=== PATIENT | male | born 1945 | race Hispanic/Latino ===

== ENCOUNTER 2017-08-07 12:48 | Outpatient (CLI) | payer MEDICARE ==
--- NOTE | 2017-08-07 14:56 | MRI ---
MRI LUMBAR SPINE WITHOUT CONTRAST: HISTORY: Low back pain radiating down the right hip/leg. Right lumbar radiculopathy, dorsalgia. FINDINGS: The vertebral heights and marrow signal are maintained. There is minimal anterolisthesis of L4 over L5. Conus medullaris ends at the L1 level. Chronically short pedicles are noted bilaterally. There are broad-based disk bulges of the lumbar spine. Bilateral facet hypertrophic changes and ligamentu m flavum hypertrophy changes are present most prominent at L2-3, L4-5, and L5-S1 levels. There is mo derate central canal stenosis at L2-3 level and severe central canal stenosis at L4-5 level. No sign ificant neural foraminal stenosis is seen. There is mild right-sided neural foraminal stenosis at L5 -S1 level. IMPRESSION: 1. Lumbar spondylosis with minimal grade I anterolisthesis of L4 over L5. 2. Severe central spinal stenosis at L4-5 level and moderate central canal stenosis at L2-L3 level. POS: JAMEEL
== END 2017-08-07 12:49 | disposition home or self-care (01) ==
LOC: SCSMRI 12:48
PROVIDERS: ATTEND Family Medicine
DX: M47.26 Other spondylosis with radiculopathy, lumbar region (principal); M48.061 Spinal stenosis, lumbar region without neurogenic claudication; Z98.890 Other specified postprocedural states
CPT/HCPCS: 72148

== ENCOUNTER 2019-04-22 09:07 | Emergency (ER) | payer MEDICARE ==
[2019-04-22] MEDS ORDERED: Fentanyl 100 MCG/2 ML VIAL ONE (09:41)
--- NOTE | 2019-04-22 09:48 | RAD ---
Radiograph right hip 2 views: HISTORY: 73-year-old male with traumatic right hip pain due to fall from height. FINDINGS: No fracture or dislocation. No high-grade DJD of right hip joint. IMPRESSION: Negative.
--- NOTE | 2019-04-22 09:48 | RAD ---
Exam: One view pelvis HISTORY: Fall. Pain. FINDINGS: Sacroiliac joints are patent and symmetric. Sacral alar preserved. Intact bony pelvis. Cont our of both femoral heads are maintained. Symmetric hip joint spaces. IMPRESSION: No posttraumatic change in the single AP pelvic radiograph.
[2019-04-22 09:52] LABS: #Eosinphils 0.5 thou/uL (0.0-0.7); #Lymphocytes 1.3 thou/uL (1.20-3.40); #Monocytes 0.4 thou/uL (0.11-0.59); #Neutrophils 4.2 thou/uL (1.40-6.50); %Basophils 0.2 % (0.0-1.0); %Eosinophils 7.6 % (0.0-10.0); %Lymphocytes 20.3 % (21.0-51.0); %Monocytes 5.9 % (0.0-10.0); Mean Corpuscular HGB CONC 33.9 g/dL (32.0-36.0); Mean Corpuscular Hemoglobin 30.6 pg (27.0-31.0); Mean Corpuscular Volume 90.5 fL (78.0-98.0); Mean Platelet Volume 7.6 fL (7.4-10.4); Platelet Count 122 thou/uL (130-400); Red Blood Cell (RBC) Count 4.57 mill/uL (4.70-6.10); White Blood Cell (WBC) Count 6.4 thou/uL (4.8-10.8)
[2019-04-22 10:12] LABS: ALT (SGPT) 21 U/L (8-55); AST (SGOT) 25 U/L (5-34); Albumin 4.5 g/dL (3.4-4.8); Alkaline Phosphatase 56 U/L (40-150); Anion Gap 15 mmol/L (10-20); BUN (Urea Nitrogen) 19 mg/dL (8.4-25.7); Bilirubin, Total 0.8 mg/dL (0.2-1.2); Calc. Creatinine Clearance 0 mL/min (70-130); Carbon Dioxide 24 mmol/L (23-31); Chloride 101 mmol/L (98-107); Estimated GFR-MDRD 63; Globulin 3.4 g/dL (2.4-3.5); Glucose 102 mg/dL (83-110); Lipase 61 U/L (8-78); Potassium 3.8 mmol/L (3.5-5.1); Protein, Total 7.9 g/dL (5.8-8.1); Sodium 136 mmol/L (136-145)
== END 2019-04-22 11:00 | disposition home or self-care (01) ==
LOC: ERS 09:07
DX: M25.551 Pain in right hip (principal); W11.XXXA Fall on and from ladder, initial encounter
CPT/HCPCS: 36415; 72170; 80053; 83605; 83690; 85025; 96374; J3010

== ENCOUNTER 2025-08-13 17:21 | Emergency (ER) | payer OTHER ==
[2025-08-13 18:16] LABS: #Basophils 0.03 10x3/uL (0.0-0.2); #Eosinophils 0.46 10x3/uL (0.0-0.7); #Monocytes 0.51 10x3/uL (0.11-0.59); #Neutrophils 5.03 10x3/uL (1.40-6.50); %Basophils 0.4 % (0.0-1.0); %Eosinophils 5.7 % (0.0-10.0); %Lymphocytes 25.3 % (21.0-51.0); %Monocytes 6.3 % (0.0-10.0); %Neutrophils 62.1 % (42.0-75.0); Hematocrit 44.1 % (42.0-52.0); Hemoglobin 15.0 g/dL (14.0-18.0); Mean Corpuscular Hemoglobin 30.4 pg (27.0-31.0); Mean Corpuscular Volume 89.5 fL (78.0-98.0); Platelet Count 147 10x3/uL (130-400); Red Blood Cell (RBC) Count 4.93 mill/uL (4.70-6.10); White Blood Cell (WBC) Count 8.10 10x3/uL (4.8-10.8)
[2025-08-13 18:31] LABS: ALT (SGPT) 14 U/L (Less than 45); AST (SGOT) 25 U/L (11-34); Albumin 3.9 g/dL (3.1-4.5); Alkaline Phosphatase 47 U/L (40-110); Anion Gap 9 mmol/L (10-20); BUN (Urea Nitrogen) 13 mg/dL (8.4-25.7); Bilirubin, Total 1.3 mg/dL (0.3-1.2); Calc. Creatinine Clearance 0 mL/min (70-130); Calcium 9.4 mg/dL (7.8-10.44); Carbon Dioxide 26 mmol/L (23-31); Chloride 103 mmol/L (98-107); Globulin 3.1 g/dL (2.4-3.5); Glucose 115 mg/dL (83-110); Potassium 3.8 mmol/L (3.5-5.1); Sodium 134 mmol/L (136-145)
[2025-08-13 18:36] LABS: INR-International Normal Ratio 1.0; PTT 28.0 sec (22.9-36.1); Prothrombin Time 13.8 sec (12.0-14.7)
[2025-08-13 18:38] LABS: Bacteria/HPF None Seen HPF (None Seen); CAUTI Indications for Culture Dysuria,urgency,freq; Glucose, Urine (Dipstick) Normal (Negative); Leukocyte Negative Leu/uL (Negative); Protein, Urine (Dipstick) Negative (Neg-Trace); RBC/HPF 0-3 HPF (0-3); Specific Gravity, Urine 1.018 (1.002-1.036); WBC/HPF 0-3 HPF (0-3)
[2025-08-13 18:39] LABS: Urine Culture Reflex No No
== END 2025-08-13 21:55 ==
LOC: ERS 17:21
DX: R53.1 Weakness (principal); E78.5 Hyperlipidemia, unspecified; I10 Essential (primary) hypertension; Z86.73 Personal history of transient ischemic attack (TIA), and cerebral infarction without residual deficits; Z79.899 Other long term (current) drug therapy
CPT/HCPCS: 70496; 70498; 71045; 80053; 81001; 83605; 84484; 85025; 85610; 85730; 87428; 93005